=== PATIENT | male | born 1965 | race Caucasian/White ===

== ENCOUNTER 2017-08-01 13:26 | Inpatient (IN) | payer OTHER ==
[2017-08-01 16:09] LABS: ADD UMIC NO; UR ASCORBIC ACID NEGATIVE (NEGATIVE); UR BILIRUBIN (Dip) NEGATIVE (NEGATIVE); UR BLOOD (Dip) NEGATIVE (NEGATIVE); UR CLARITY SLIGHTLY CLOUDY (CLEAR); UR COLOR YELLOW (YELLOW); UR GLUCOSE (Dip) 3+ mg/dL (NEGATIVE); UR KETONES (Dip) NEGATIVE (NEGATIVE); UR LEUKOCYTE ESTERASE (Dip) NEGATIVE Leu/ul (NEGATIVE); UR NITRITE (Dip) NEGATIVE (NEGATIVE); UR RBC 0 /HPF (0-5); UR SPECIFIC GRAVITY (Dip) 1.017 (1.003-1.030); UR TOTAL PROTEIN (Dip) NEGATIVE (NEGATIVE); UR UROBILINOGEN (Dip) NEGATIVE (NEGATIVE); UR WBC 0 /HPF (0-5)
[2017-08-01] MEDS: ONDANSETRON 4 MG INJ IV (16:16)
[2017-08-01] MEDS: LIDOCAINE/MYLANTA 40 ML BTL PO ×2 (16:16→17:34)
[2017-08-01] MEDS: LACTATED RINGER'S 1,000 ML IV (16:16)
[2017-08-01 16:28] LABS: ADD MAN DIFF? NO
[2017-08-01 16:32] LABS: WHITE BLOOD COUNT 14.5 10^3/ul (4.8-10.8)
[2017-08-01 16:32] LABS: BASOPHILS % 0.1 % (0.0-2.0); HEMATOCRIT 24.5 % (42.0-52.0); HEMOGLOBIN 8.6 g/dl (14.0-18.0); LYMPHOCYTES % 7.2 % (15.0-51.0); MEAN CORPUSCULAR HEMOGLOBIN 32.1 pg (29.0-33.0); MEAN CORPUSCULAR HGB CONC 35.1 g/dl (32.0-37.0); MEAN CORPUSCULAR VOLUME 91.4 fl (82.0-101.0); MONOCYTE # 1.3 10^3/ul (0.3-0.9); MONOCYTES % 8.8 % (0.0-11.0); NEUTROPHILS % 82.5 % (39.0-77.0); PLATELET COUNT 175 10^3/UL (140-415); RED BLOOD COUNT 2.68 10^6/ul (4.70-6.10); RED CELL DISTRIBUTION WIDTH 14.5 % (11.5-14.5)
[2017-08-01] MEDS: SOD CHLORIDE 0.9% 1,000 ML IV ×3 (16:49→23:32)
[2017-08-01 17:00] LABS: ALANINE AMINOTRANSFERASE 27 IU/L (13-69); ALBUMIN 3.5 g/dl (3.3-4.9); ALKALINE PHOSPHATASE 48 IU/L (42-121); ANION GAP 17 (8-16); ASPARTATE AMINO TRANSFERASE 17 IU/L (15-46); BILIRUBIN,INDIRECT 0.4 mg/dl (0-1.1); BILIRUBIN,TOTAL 0.4 mg/dl (0.2-1.3); BLOOD UREA NITROGEN 69 mg/dl (7-20); CALCIUM 8.3 mg/dl (8.4-10.2); CARBON DIOXIDE 30 mmol/L (21-31); CHLORIDE 92 mmol/L (97-110); CREATININE 1.63 mg/dl (0.61-1.24); LIPASE 68 U/L (23-300); POTASSIUM 3.9 mmol/L (3.5-5.1); SODIUM 135 mmol/L (135-144)
[2017-08-01] MEDS: FAMOTIDINE 20 MG INJ IV (17:04)
[2017-08-01 17:05] LABS: GLUCOSE 402 mg/dl (70-220)
[2017-08-01 17:08] LABS: TROPONIN-I 0.072 ng/ml (0.00-0.12)
[2017-08-01] MEDS: PIPER-TAZO 3.375 GM IV (PMX) 100 ML IVPB (17:47)
[2017-08-01 18:12] LABS: HEMATOCRIT 19.8 % (42.0-52.0)
[2017-08-01 18:17] LABS: HEMOGLOBIN 6.9 g/dl (14.0-18.0)
[2017-08-01] MEDS ORDERED: GLUCAGON 1 MG INJ IM (18:30)
[2017-08-01] MEDS ORDERED: GLUCOSE GEL 15 GRAM TUBE BUCCAL (18:30)
[2017-08-01] MEDS ORDERED: GLUCOSE GEL 15 GRAM TUBE PO ×2 (18:30)
[2017-08-01] MEDS ORDERED: DEXTROSE 50% 50 ML SYRINGE IV ×2 (18:30)
[2017-08-01] MEDS ORDERED: ONDANSETRON 4 MG INJ IV (18:30)
[2017-08-01] MEDS ORDERED: ACETAMINOPHEN 325 MG TAB PO (18:30)
[2017-08-01] MEDS ORDERED: NACL 0.9% 3 ML SYG IV (18:30)
[2017-08-01 18:34] LABS: LACTIC ACID 4.8 mmol/L (0.5-2.0)
[2017-08-01 19:02] LABS: HEMOGLOBIN A1C 6.6 % (0-5.9)
[2017-08-01] MEDS: DOXAZOSIN 4 MG TAB PO (21:00)
[2017-08-01 21:02] LABS: IMMEDIATE SPIN CROSSMATCH 1 2
[2017-08-01] MEDS: PANTOPRAZOLE 40 MG INJ IV (23:13)
[2017-08-01] MEDS: INSULIN DETEMIR [LEVEMIR] 3ML CART SC (23:20)
[2017-08-01] MEDS: INSULIN ASPART [NOVOLOG] 3 ML PEN SC (23:21)
[2017-08-02 00:03] LABS: LACTIC ACID 2.3 mmol/L (0.5-2.0)
[2017-08-02 04:18] LABS: LACTIC ACID 2.1 mmol/L (0.5-2.0)
[2017-08-02] MEDS: SOD CHLORIDE 0.9% 1,000 ML IV ×2 (06:18→21:32)
[2017-08-02 07:08] LABS: ADD MAN DIFF? NO
[2017-08-02 07:14] LABS: BASOPHILS % 0.2 % (0.0-2.0); EOSINOPHILS % 0.1 % (0.0-7.0); HEMOGLOBIN 9.5 g/dl (14.0-18.0); LYMPHOCYTES % 16.4 % (15.0-51.0); MEAN CORPUSCULAR HEMOGLOBIN 31.5 pg (29.0-33.0); MEAN CORPUSCULAR HGB CONC 35.2 g/dl (32.0-37.0); MEAN CORPUSCULAR VOLUME 89.4 fl (82.0-101.0); MEAN PLATELET VOLUME 12.2 fl (7.4-10.4); MONOCYTE # 1.1 10^3/ul (0.3-0.9); MONOCYTES % 9.3 % (0.0-11.0); NEUTROPHILS % 73.1 % (39.0-77.0); NUCLEATED RED BLOOD CELLS% 0.2 /100WBC (0.0-0.0); PLATELET COUNT 124 10^3/UL (140-415); RED BLOOD COUNT 3.02 10^6/ul (4.70-6.10); RED CELL DISTRIBUTION WIDTH 14.4 % (11.5-14.5)
[2017-08-02 07:14] LABS: WHITE BLOOD COUNT 12.3 10^3/ul (4.8-10.8)
[2017-08-02 07:38] LABS: LACTIC ACID 1.8 mmol/L (0.5-2.0)
[2017-08-02 07:39] LABS: ALANINE AMINOTRANSFERASE 26 IU/L (13-69); ALBUMIN 3.1 g/dl (3.3-4.9); ALBUMIN/GLOBULIN RATIO 1.19; ALKALINE PHOSPHATASE 40 IU/L (42-121); ANION GAP 14 (8-16); ASPARTATE AMINO TRANSFERASE 13 IU/L (15-46); BILIRUBIN,INDIRECT 0.3 mg/dl (0-1.1); BILIRUBIN,TOTAL 0.3 mg/dl (0.2-1.3); BLOOD UREA NITROGEN 46 mg/dl (7-20); CALCIUM 8.2 mg/dl (8.4-10.2); CARBON DIOXIDE 31 mmol/L (21-31); CHLORIDE 104 mmol/L (97-110); CREATININE 1.39 mg/dl (0.61-1.24); GLUCOSE 188 mg/dl (70-220); MAGNESIUM 2.4 mg/dl (1.7-2.5); POTASSIUM 3.6 mmol/L (3.5-5.1); SODIUM 145 mmol/L (135-144); TOTAL PROTEIN 5.7 g/dl (6.1-8.1)
[2017-08-02 07:40] LABS: INR 1.09; PROTIME 14.2 Sec (11.9-14.9); PT RATIO 1.1
[2017-08-02] MEDS: AMLODIPINE 10 MG TAB PO (08:20)
[2017-08-02] MEDS: PANTOPRAZOLE 40 MG INJ IV ×2 (08:20→21:22)
[2017-08-02] MEDS: INSULIN ASPART [NOVOLOG] 3 ML PEN SC ×4 (08:21→21:00)
[2017-08-02] MEDS: METOPROLOL (XL) 25 MG TAB PO (08:21)
[2017-08-02] MEDS: POTASSIUM CHLORIDE 100 ML IVPB ×2 (11:15→14:08)
[2017-08-02] MEDS: PEG/ELECTROLYTES 4L BTL PO (18:48)
[2017-08-02] MEDS: DOXAZOSIN 4 MG TAB PO (21:24)
[2017-08-02] MEDS: INSULIN DETEMIR [LEVEMIR] 3ML CART SC (21:31)
[2017-08-03] MEDS: INSULIN ASPART [NOVOLOG] 3 ML PEN SC ×4 (07:59→21:30)
[2017-08-03] MEDS: PANTOPRAZOLE 40 MG INJ IV ×2 (08:45→21:26)
[2017-08-03] MEDS: AMLODIPINE 10 MG TAB PO (08:45)
[2017-08-03] MEDS: METOPROLOL (XL) 25 MG TAB PO (08:45)
[2017-08-03] MEDS: SOD CHLORIDE 0.9% 1,000 ML IV ×2 (08:46→21:26)
[2017-08-03 10:21] LABS: ANION GAP 10 (8-16); BLOOD UREA NITROGEN 13 mg/dl (7-20); CALCIUM 7.8 mg/dl (8.4-10.2); CARBON DIOXIDE 26 mmol/L (21-31); CHLORIDE 110 mmol/L (97-110); CREATININE 0.91 mg/dl (0.61-1.24); GLUCOSE 109 mg/dl (70-220); POTASSIUM 3.6 mmol/L (3.5-5.1); SODIUM 142 mmol/L (135-144)
[2017-08-03] MEDS ORDERED: LIDOCAINE 2% (SDV) 5 ML INJ (14:19)
[2017-08-03] MEDS ORDERED: PROPOFOL 60 ML (14:19)
[2017-08-03] MEDS: DOXAZOSIN 4 MG TAB PO (21:27)
[2017-08-03] MEDS: INSULIN DETEMIR [LEVEMIR] 3ML CART SC (21:29)
[2017-08-04 05:55] LABS: ADD MAN DIFF? NO
[2017-08-04 06:04] LABS: WHITE BLOOD COUNT 7.5 10^3/ul (4.8-10.8)
[2017-08-04 06:04] LABS: BASOPHILS % 0.3 % (0.0-2.0); EOSINOPHILS # 0.1 10^3/ul (0.0-0.5); EOSINOPHILS % 0.9 % (0.0-7.0); HEMOGLOBIN 8.5 g/dl (14.0-18.0); LYMPHOCYTES % 26.6 % (15.0-51.0); MEAN CORPUSCULAR HEMOGLOBIN 31.1 pg (29.0-33.0); MEAN CORPUSCULAR VOLUME 91.6 fl (82.0-101.0); MEAN PLATELET VOLUME 12.9 fl (7.4-10.4); MONOCYTE # 0.6 10^3/ul (0.3-0.9); NEUTROPHIL # 4.8 10^3/ul (1.6-7.5); NEUTROPHILS % 63.5 % (39.0-77.0); PLATELET COUNT 119 10^3/UL (140-415); RED BLOOD COUNT 2.73 10^6/ul (4.70-6.10); RED CELL DISTRIBUTION WIDTH 13.8 % (11.5-14.5)
[2017-08-04 06:17] LABS: ALBUMIN 2.8 g/dl (3.3-4.9); ANION GAP 11 (8-16); BLOOD UREA NITROGEN 14 mg/dl (7-20); CARBON DIOXIDE 27 mmol/L (21-31); CHLORIDE 109 mmol/L (97-110); CREATININE 0.98 mg/dl (0.61-1.24); GLUCOSE 127 mg/dl (70-220); MAGNESIUM 1.8 mg/dl (1.7-2.5); PHOSPHORUS 3.8 mg/dl (2.5-4.9); POTASSIUM 3.9 mmol/L (3.5-5.1); SODIUM 143 mmol/L (135-144)
[2017-08-04] MEDS: METOPROLOL (XL) 25 MG TAB PO (08:10)
[2017-08-04] MEDS: PANTOPRAZOLE 40 MG INJ IV (08:10)
[2017-08-04] MEDS: AMLODIPINE 10 MG TAB PO (08:10)
[2017-08-04] MEDS: INSULIN ASPART [NOVOLOG] 3 ML PEN SC ×4 (08:11→20:43)
[2017-08-04] MEDS: SOD CHLORIDE 0.9% 1,000 ML IV (11:58)
[2017-08-04] MEDS: PANTOPRAZOLE (EC) 40 MG TAB PO (17:35)
[2017-08-04] MEDS: DOXAZOSIN 4 MG TAB PO (20:41)
[2017-08-04] MEDS: INSULIN DETEMIR [LEVEMIR] 3ML CART SC (20:42)
[2017-08-05] MEDS: SOD CHLORIDE 0.9% 1,000 ML IV (01:42)
[2017-08-05] MEDS: PANTOPRAZOLE (EC) 40 MG TAB PO (05:56)
[2017-08-05 06:02] LABS: ADD MAN DIFF? NO
[2017-08-05 06:08] LABS: BASOPHILS % 0.4 % (0.0-2.0); EOSINOPHILS # 0.1 10^3/ul (0.0-0.5); EOSINOPHILS % 1.6 % (0.0-7.0); HEMATOCRIT 26.6 % (42.0-52.0); HEMOGLOBIN 9.3 g/dl (14.0-18.0); LYMPHOCYTES # 2.1 10^3/ul (0.8-2.9); LYMPHOCYTES % 29.5 % (15.0-51.0); MEAN CORPUSCULAR HEMOGLOBIN 31.7 pg (29.0-33.0); MEAN CORPUSCULAR VOLUME 90.8 fl (82.0-101.0); MEAN PLATELET VOLUME 12.4 fl (7.4-10.4); MONOCYTE # 0.7 10^3/ul (0.3-0.9); MONOCYTES % 9.7 % (0.0-11.0); NEUTROPHIL # 4.1 10^3/ul (1.6-7.5); NEUTROPHILS % 58.2 % (39.0-77.0); PLATELET COUNT 135 10^3/UL (140-415); RED BLOOD COUNT 2.93 10^6/ul (4.70-6.10)
[2017-08-05 06:35] LABS: ALBUMIN 3.1 g/dl (3.3-4.9); ANION GAP 12 (8-16); BLOOD UREA NITROGEN 13 mg/dl (7-20); CALCIUM 8.2 mg/dl (8.4-10.2); CARBON DIOXIDE 26 mmol/L (21-31); CHLORIDE 109 mmol/L (97-110); CREATININE 0.95 mg/dl (0.61-1.24); GLUCOSE 124 mg/dl (70-220); MAGNESIUM 1.8 mg/dl (1.7-2.5); PHOSPHORUS 3.9 mg/dl (2.5-4.9); POTASSIUM 3.8 mmol/L (3.5-5.1); SODIUM 143 mmol/L (135-144)
[2017-08-05] MEDS: INSULIN ASPART [NOVOLOG] 3 ML PEN SC ×2 (08:13→12:13)
[2017-08-05] MEDS: AMLODIPINE 10 MG TAB PO (09:00)
[2017-08-05] MEDS: METOPROLOL (XL) 25 MG TAB PO (09:00)
== END 2017-08-05 13:37 | disposition home or self-care (01) | DRG 378 ==
LOC: E/R 13:26 → PP2 08-03 19:10 → MS4 17:53
PROC: 0DD48ZX Extraction of Esophagogastric Junction, Via Natural or Artificial Opening Endoscopic, Diagnostic (ICD-10-PCS; principal; 2017-08-03 13:30)
PROC: 0DJD8ZZ Inspection of Lower Intestinal Tract, Via Natural or Artificial Opening Endoscopic (ICD-10-PCS; 2017-08-03 14:05)
PROC: 30233N1 Transfusion of Nonautologous Red Blood Cells into Peripheral Vein, Percutaneous Approach (ICD-10-PCS; 2017-08-03 14:05)
DX: K25.0 Acute gastric ulcer with hemorrhage (principal); N17.9 Acute kidney failure, unspecified; D62 Acute posthemorrhagic anemia; K29.80 Duodenitis without bleeding; K57.30 Diverticulosis of large intestine without perforation or abscess without bleeding; K64.4 Residual hemorrhoidal skin tags; I10 Essential (primary) hypertension; E11.65 Type 2 diabetes mellitus with hyperglycemia; D72.829 Elevated white blood cell count, unspecified; Z79.4 Long term (current) use of insulin; Z79.82 Long term (current) use of aspirin
CPT/HCPCS: 36415; 36430; 71045; 74176; 80048; 80053; 80069; 81001; 81003; 82962; 83036; 83605; 83690; 83735; 84484; 85014; 85018; 85025; 85610; 86850; 86900; 86901; 86920; 87040; 88104; 88305; 88312; 93005; 96374; 96375; 99285-25

== ENCOUNTER 2017-08-11 14:40 | Outpatient (CLI) | payer OTHER | END 2017-08-11 16:18 | disposition home or self-care (01) | LOC: DCC 14:40 | DX: K27.9 Peptic ulcer, site unspecified, unspecified as acute or chronic, without hemorrhage or perforation (principal); E11.8 Type 2 diabetes mellitus with unspecified complications; I10 Essential (primary) hypertension; N40.0 Benign prostatic hyperplasia without lower urinary tract symptoms; I70.90 Unspecified atherosclerosis; Z79.84 Long term (current) use of oral hypoglycemic drugs; Z79.82 Long term (current) use of aspirin; Z79.4 Long term (current) use of insulin | CPT/HCPCS: G0463 ==

== ENCOUNTER 2017-08-26 15:11 | Outpatient (CLI) | payer OTHER | END 2017-08-26 16:06 | disposition home or self-care (01) | LOC: DCC 15:11 | DX: K27.9 Peptic ulcer, site unspecified, unspecified as acute or chronic, without hemorrhage or perforation (principal); I10 Essential (primary) hypertension; E11.8 Type 2 diabetes mellitus with unspecified complications; N40.0 Benign prostatic hyperplasia without lower urinary tract symptoms | CPT/HCPCS: G0463 ==